=== PATIENT | male | born 1975 | race African-American/Black ===

== ENCOUNTER 2020-11-21 04:32 | Day surgery (SDC) | payer OTHER ==
[2020-11-19 17:19] VITALS: BMI 28.1
[~2020-11-21 04:32] MED LIST: BUPIVACAINE HCL/PF 0.5% (5MG/ML) 10 ML VIAL IJ ONE; LIDOCAINE 1%/EPI 1:100000 (20 ML MULTI DOSE VIAL) IJ ONE
[2020-11-21] MEDS ORDERED: LIDOCAINE 1%/EPI 1:100000 (20 ML MULTI DOSE VIAL) ONE (07:31)
[2020-11-21] MEDS ORDERED: BUPIVACAINE HCL/PF 0.5% (5MG/ML) 10 ML VIAL ONE (07:32)
[2020-11-21] MEDS ORDERED: PROPOFOL 20 ML ONE ×2 (07:33→08:22)
[2020-11-21] MEDS ORDERED: MIDAZOLAM HCL 2 MG/2 ML SINGLE DOSE VIAL ONE (07:33)
[2020-11-21] MEDS ORDERED: KETOROLAC TROMETHAMINE 30 MG/1 ML VIAL ONE (07:34)
[2020-11-21] MEDS ORDERED: LIDOCAINE HCL/PF 2% SDV 5ML VIAL ONE (07:34)
[2020-11-21] MEDS ORDERED: DEXAMETHASONE SOD PHOSPHATE 4 MG/1 ML VIAL ONE (07:34)
[2020-11-21] MEDS ORDERED: oxyCODONE HCL 5 MG TABLET PO PRN ×2 (08:31)
[2020-11-21] MEDS ORDERED: ONDANSETRON 4 MG/2 ML VIAL IVPUSH PRN (08:31)
[2020-11-21] MEDS ORDERED: BUPIVACAINE HCL/PF 0.5% (5MG/ML) 10 ML VIAL IJ ONE (08:33)
[2020-11-21] MEDS ORDERED: LIDOCAINE 1%/EPI 1:100000 (20 ML MULTI DOSE VIAL) IJ ONE (08:33)
[2020-11-21] MEDS ORDERED: LACTATED RINGERS SOLUTION 1,000 ML IV SCH (08:45)
[2020-11-21 10:53] VITALS: TEMP 97.3
[2020-11-21 13:04] VITALS: BP 118/76; PULSE 76
== END 2020-11-21 12:00 | disposition home or self-care (01) ==
LOC: JASU-SURG 04:32
PROVIDERS: ATTEND Orthopaedic Surgery
PROC: 0SBD4ZZ Excision of Left Knee Joint, Percutaneous Endoscopic Approach (ICD-10-PCS; principal; 2020-11-21 08:00)
DX: S83.242A Other tear of medial meniscus, current injury, left knee, initial encounter (principal); X58.XXXA Exposure to other specified factors, initial encounter; Y93.9 Activity, unspecified; Y92.9 Unspecified place or not applicable; Y99.9 Unspecified external cause status
CPT/HCPCS: 94760